=== PATIENT | female | born 1935 | race Caucasian/White ===

== ENCOUNTER → 2018-02-17 06:27 | Outpatient (CLI) | payer MEDICARE, SELFPAY ==
--- NOTE | 2018-02-17 09:04 | STRESSREP ---
Stress Test Report Pharmacologic myocardial perfusion stress test. 82-year-old lady with a history of chronic persistent atrial fibrillation. Medications metoprolol Multivite. Stress protocol: Resting EKG demonstrates atrial fibrillation with a rate of 94 bpm normal intervals and noted resting blood pressure is 128/70 mmHg. 0.4 mg of regadenoson was infused per usual protocol followed by rapid intravenous saline flush injection. Continuous EKG monitoring was performed. The maximum heart rate attained was 148 bpm which was 108% of maximum predicted heart rate the maximum workload attained was 1 metabolic equivalent. At rest there were no ST or T-wave changes noted suggest abnormal flow reserve at peak infusion no ST or T-wave changes were noted suggest abnormal flow reserve. Resting blood pressure was 128/70 final blood pressure is 112/78. Myocardial perfusion protocol. 11.1 mCi of technetium 99m sestamibi was injected at rest. 0.4 mg of regadenoson was infused per usual protocol. At peak infusion 32.9 mCi of technetium 99m sestamibi was injected stress images was obtained stress and rest images were reconstructed and compared in the short axis vertical long and horizontal long axis. Gated images were also obtained. Perfusion SPECT analysis: Review of the stress images demonstrate normal uptake of tracer noted in all areas of myocardium. The resting images similarly demonstrate normal uptake of tracer noted in all areas of myocardium. No areas of reversibility are noted suggest ischemia no previous infarct is noted. Gated SPECT analysis: The gated ejection fraction is 84%. Conclusion: Normal pharmacologic myocardial perfusion stress test. Preserved ejection fraction. Chronic persistent atrial fibrillation.
== END ==
PROVIDERS: Family Provider Family Medicine; PCP Family Medicine; Visit Provider Internal Medicine Cardiovascular Disease
DX: R94.31 Abnormal electrocardiogram [ECG] [EKG] (principal); I36.1 Nonrheumatic tricuspid (valve) insufficiency; I27.21 Secondary pulmonary arterial hypertension; I48.91 Unspecified atrial fibrillation
CPT/HCPCS: 78452; 93017; A9500; A4216; J2785

== ENCOUNTER → 2019-03-17 | Outpatient (CLI) | payer MEDICARE, SELFPAY ==
[2019-02-17 13:14] VITALS: BMI 25.9
--- NOTE | 2019-03-17 07:17 | ECHOD_ITS ---
Reason For Study: PHTN Procedure This was a 2D Doppler, Color Flow transthoracic echocardiogram. Exam performed in department. Left Ventricle Normal size and thickness. The estimated ejection fraction is 65 %. Unable to assess diastolic dysfunction due to arrhythmia. No regional wall motion abnormalities noted. Right Ventricle Normal size and thickness. Normal systolic function. Atria The left atrium is mildly enlarged. The right atrium is moderately enlarged. Normal atrial septum. Mitral Valve The mitral valve is structurally normal. No prolapse or stenosis seen. Tricuspid Valve Normal tricuspid valve. Mild (1+) tricuspid valve insufficiency. Right ventricular systolic pressure estimated to be 53 mmHg. Moderate pulmonary hypertension. Aortic Valve Normal aortic valve. Trisinus/trileaflet aortic valve. Pulmonic Valve Normal pulmonic valve. Great Vessels Normal aortic root. Normal arch. The inferior vena cava is dilated. Inferior vena cava collapse with sniff. Pericardium/Pleural No pericardial effusion. MMode/2D Measurements & Calculations LVIDd: 4.0 cm IVSd: 0.86 cm Ao root diam: 2.8 cm LVIDs: 2.5 cm LVPWd: 0.77 cm RVDd: 3.4 cm FS: 37.7 % LAV(MOD-bp): 74.8 ml LA A4 area: 22.8 cm2 LA dimension(2D): 4.0 cm LAV(MOD-bp) Indexed: 45.5 ml/m2 LAV(MOD-sp2): 73.0 ml LAV(MOD-sp4): 73.0 ml RA A4 area: 21.3 cm2 Doppler Measurements & Calculations MV E max lucien: 123.4 cm/sec Ao V2 max: 94.4 cm/sec LV V1 max: 72.9 cm/sec Ao max P.6 mmHg LV V1 max P.1 mmHg PA V2 max: 79.5 cm/sec TR max lucien: 288.4 cm/sec TR max P.3 mmHg Interpretation Summary The estimated ejection fraction is 65 %. Unable to assess diastolic dysfunction due to arrhythmia. The left atrium is mildly enlarged. The right atrium is moderately enlarged. Mild (1+) tricuspid valve insufficiency. Right ventricular systolic pressure estimated to be 53 mmHg. Moderate pulmonary hypertension. Compared to echo report dated 10/22/2017, LV function has remained the same. RV size has normalized. Pt appears to be in atrial fibrillation. Ordering Physician: Jamil Lamb Referring Physician: Urbano Mccormick Performed By: Kinjal Tan, MALIK, RVT
== END | disposition home or self-care (01) ==
PROVIDERS: Family Provider Family Medicine; PCP Family Medicine; Referring Provider Internal Medicine Cardiovascular Disease; Visit Provider Internal Medicine Cardiovascular Disease
DX: I27.20 Pulmonary hypertension, unspecified (principal); Z98.890 Other specified postprocedural states
CPT/HCPCS: 93306

== ENCOUNTER 2019-08-09 17:41 | Emergency (ER) | payer MEDICARE, SELFPAY ==
[2019-06-29 09:42] VITALS: BMI 25.2
[2019-08-09 17:42] VITALS: BP 161/92; PULSE 128; RESP 18; TEMP 36.9; O2SAT 98; BMI 25.2
--- NOTE | 2019-08-09 18:19 | CT_ITS ---
STUDY: CT BRAIN WITHOUT CONTRAST REASON FOR EXAM: Female, 83 years old. Fell and injured face. TECHNIQUE: Transaxial CT imaging of the brain was performed without administration of intravenous contrast material. Individualized dose optimization techniques were used for this CT. COMPARISON: No relevant priors. FINDINGS: No evidence of intracranial hemorrhage, mass, acute infarct, or hydrocephalus. Chronic microangiopathic changes in the white matter. Atherosclerosis of the intracranial arteries. No skull fracture. Acute impacted nasal fracture extending into the bony nasal septum. Visualized paranasal sinuses and mastoid air cells patent. Soft tissue swelling in the right frontal scalp and superficial to the nasal fracture. CT/Brain/Head without Contrast IMPRESSION: No evidence of intracranial injury or skull fracture. Acute impacted nasal fracture with adjacent soft tissue swelling. Electronically Signed: Sebastian Roe, at 19:04 EDT Tel , Service support ,
--- NOTE | 2019-08-09 18:19 | CT_ITS ---
STUDY: CT FACIAL BONES WITHOUT CONTRAST REASON FOR EXAM: Female, 83 years old. Fell and injured face. RADIATION DOSAGE (If Supplied By Facility): CTDIvol = ( 29.38 ) mGy, DLP = ( 547.46 ) mGycm TECHNIQUE: The patient was scanned in a multi detector CT scanner. Sagittal and coronal images were reconstructed. Individualized dose optimization techniques were used for this CT. COMPARISON: None. FINDINGS: Acute impacted nasal fracture extending into the nasal septum which is buckled and fractured. No other fracture. Globes have normal contour, no proptosis. Nasal soft tissue swelling and right frontal scalp soft tissue swelling. Polypoid mucosal thickening partially fills the right sphenoid sinus. Paranasal sinuses otherwise patent with no air-fluid levels. Mastoid air cells and middle ears patent. Atherosclerosis of the bilateral CCA bifurcations. Degenerative changes partially visible cervical spine. No acute dental lesions. CT/Sinus/Facial Bone IMPRESSION: Acute impacted nasal fractures extending into the nasal septum. Nasal and right frontal scalp soft tissue swelling. Electronically Signed: Sebastian Roe, at 19:08 EDT Tel , Service support ,
--- NOTE | 2019-08-09 19:43 | ED.DCSUM_ITS ---
- ER Visit Summary Date of Service: 08/09/19 Chief Complaint: [Fall with facial injury] History of Present Illness: The patient is a 83 F [Jose Ftz to the emergency department after a fall today. Patient states that she tripped over a curb and struck her face on the ground. No loss of consciousness. She denies any neck pain. Patient is on Coumadin for history of atrial fibrillation. Patient's last INR was this morning and was 3.0. She denies any visual changes. She denies any headache. Patient states that she feels okay but just wanted to get checked out. Patient believes that she is up-to-date on tetanus.] Physical Examination: [HEENT-PERRLA, EOMI. Cranial nerves II through XII grossly intact. TMs clear. Mucous membranes moist. No adenopathy. He has diffuse soft tissue swelling over the nasal bone with superficial abrasion. No septal hematoma noted. She had some dried blood in both sides of the nose. Patient has no tenderness over the mandible. Midface is stable. He has no C- spine terms of palpation and normal active range of motion is painless. Cardiovascular-regular rate and rhythm without murmur or ectopy Lungs-clear to auscultation, chest wall stable without crepitus or subcu emphysema Abdomen-normoactive bowel sounds, soft, nontender, no rebound or rigidity, no peritoneal signs. Extremities-intact ?4, normal range of motion, normal pulses, atraumatic] Test Results: [CT scan of the brain without contrast showed nothing acute intracranially. CT scan of the facial bones showed a nasal bone fracture.] Emergency Department Course and Treatment: [] Treatment Plan: [Advised to use ice to the area she will be given a prescription for [place] for pain. She will be given referral to ear nose and throat for follow-up.] Disposition: [Discharged home in stable condition.] Impression: [Mechanical fall Closed head injury Nasal fracture] This note was generated with [employer] dictation software. It may contain incorrect words, spelling, and punctuation that were not noted in review of the chart prior to signing ED Disposition - Plan for ED Patient: Referrals: Wilmar Mccormick MD [Primary Care Provider] -
--- NOTE | 2019-08-09 19:45 | DCINST.ED_ITS ---
ED Disposition - Plan for ED Patient: Instructions: FALL, Mechanical, FRACTURE, Nose (with X-Ray) Prescriptions: Hydrocodone Bitart/Apap 5-325 [[place] 5MG-325MG] 1 tab PO Q4H PRN PRN 2 Days #10 tab PRN Reason: Pain Prescription Printed Referrals: Wilmar Mccormick MD [Primary Care Provider] - 3-5 Days
== END 2019-08-09 20:03 | disposition home or self-care (01) ==
LOC: ED 18:23
PROVIDERS: Emergency Provider Emergency Medicine; Family Provider Family Medicine; PCP Family Medicine
DX: S02.2XXA Fracture of nasal bones, initial encounter for closed fracture (principal); I48.91 Unspecified atrial fibrillation; Z79.01 Long term (current) use of anticoagulants; W01.0XXA Fall on same level from slipping, tripping and stumbling without subsequent striking against object, initial encounter; Y93.01 Activity, walking, marching and hiking; Y92.89 Other specified places as the place of occurrence of the external cause; Y99.8 Other external cause status
CPT/HCPCS: 70450; 70486; 99282

== ENCOUNTER 2019-08-18 07:38 | Day surgery (SDC) | payer MEDICARE, SELFPAY ==
[2019-08-18] VITALS (7 sets, daily range): BP systolic 97–128; BP diastolic 67–100; PULSE 50–102; RESP 16–18; TEMP 36.6–36.8; O2SAT 94–97; BMI 25.2
[2019-08-18] MEDS: Lactated Ringers 1,000 ML 100 ML IV (08:50)
[2019-08-18] MEDS: Oxymetazoline 0.05% 1 SPRAY SPRAY.BTL 15 SPRAY (10:00)
[2019-08-18] MEDS: Mixture 30 ML Bottle TOPICAL (10:00)
--- NOTE | 2019-08-18 10:16 | DCINST_ITS ---
You will use the following diet at home:: No restrictions Discharge Activity: Return to Normal Activity - head of bed elevation. Avoid bl owing nose. Allergies/Adverse Reactions: Allergies No Known Allergies Allergy (Verified 08/09/19 17:42) Medications to take at Discharge warfarin 2 mg tablet 2 mg PO SUTUTHSA 05/20/18 calcium plus d 600 mg PO DAILY 10/05/18 multivitamin tablet 1 tab PO DAILY 10/05/18 metoprolol tartrate 50 mg tablet 75 mg PO BID #270 tab 11/10/18 levothyroxine 112 mcg tablet 112 mcg PO DAILY 02/17/19 Warfarin [Coumadin ([facility])] 3 mg PO MOWEFR 08/09/19 Primary Care Physician: Wilmar Mccormick MD [Primary Care Provider] - Test Results: Test results from this visit will be discussed in further detail at your follow- up appointment, if applicable. Please Follow Up With: Parker De La Torre MD - follow up 1-2 weeks, sooner as needed.
--- NOTE | 2019-08-18 10:53 | PCM.OPRPT ---
Report of Operation Date of Procedure: 08/18/19 Pre-Operative Diagnosis: Comminuted nasal fracture Post-Operative Diagnosis: Same Surgery/Procedure Performed:: Closed reduction of nasal fracture Type of Anesthesia:: Local MAC Anesthesiologist: Roman Callejas CRNA Estimated Blood Loss (mL): Negligible Description of Procedure: The patient was transported to the operating room and placed on the OR table in the semirecumbent position. Examination revealed resolving bruising and ecchymosis involving the entire face. This elderly woman had stumbled fall into the concrete last week. She struck her nasal bridge producing fracture along the distal nasal bones and the upper part of the septum. This could be seen on CT imaging. What could not be determined was the mobility of the lateral nasal bones themselves. Given the distortion and flattening of this area we discussed consideration of closed reduction of fracture and hence we commenced with this after full discussion. Was elected to do this under local anesthesia (MAC) as she is chronically on anticoagulation specifically Coumadin for dealing with atrial fibrillation. The nasal chamber was sprayed with some Afrin to bring about vasoconstriction and deep decongestion. She began to have some oozing in the nasal chamber earlier this morning a clot was evacuated from the left nasal chamber. After achieving some level of vasoconstriction Kelvin-Synephrine Xylocaine mixture was then applied using an atomizer. This brought about further vasoconstriction as well as topical anesthesia. Cottonoid pledgets were then dipped in the solution and one was placed into each nasal chamber superiorly. We were able to achieve adequate anesthesia to allow a nasal bone elevator to be inserted beneath the pledget material and with upward pressure the flattened area of the nasal bones was elevated in a more favorable position. We could literally hear the click of the nasal bone on each side as it was elevated superiorly. This brought about a better appearance of the nasal pyramid although it still seems somewhat flattened due to the multiple fracture lines. This was a comminuted fracture. The septum medialized somewhat better as well. It had been displaced somewhat to the left side superiorly. The most significant lacerations of mucosa appeared to be in this region more so on the left side. The pledgets were removed and it was elected to place some FloSeal material along the mucosa after which a small rolled pack of MeroGel was placed on each side. This is an absorbable material that will not require removal. Additional FloSeal was applied over this. Overall hemostasis appeared to be adequate throughout this manipulation and the final result was an improvement. At this point the procedure was terminated. The patient tolerated the procedure well, did not sustain any intraoperative anesthetic or surgical complication, was taken to the PACU where she was noted to be in satisfactory condition. Parker De La Torre MD
[2019-08-18 11:49] LABS: Prothrombin Time Fingerstick 30.6 SEC (11.9-14.4)
== END 2019-08-18 11:15 | disposition home or self-care (01) ==
LOC: SDC 07:39 → AC 07:41
PROVIDERS: Family Provider Family Medicine; PCP Family Medicine; Referring Provider Otolaryngology Otolaryngology/Facial Plastic Surgery; Visit Provider Otolaryngology Otolaryngology/Facial Plastic Surgery
PROC: 0NSBXZZ Reposition Nasal Bone, External Approach (ICD-10-PCS; CPT 21320; principal; 2019-08-18 09:45)
DX: S02.2XXA Fracture of nasal bones, initial encounter for closed fracture (principal); G47.30 Sleep apnea, unspecified; I48.91 Unspecified atrial fibrillation; E06.9 Thyroiditis, unspecified; Z86.11 Personal history of tuberculosis; Z79.01 Long term (current) use of anticoagulants; Z79.899 Other long term (current) drug therapy; Z85.3 Personal history of malignant neoplasm of breast; Z85.850 Personal history of malignant neoplasm of thyroid; W01.198A Fall on same level from slipping, tripping and stumbling with subsequent striking against other object, initial encounter; Y93.01 Activity, walking, marching and hiking; Y92.89 Other specified places as the place of occurrence of the external cause; Y99.8 Other external cause status
CPT/HCPCS: 21320; 36416; 85610; J7120; J2405

== ENCOUNTER → 2020-06-13 12:20 | Outpatient (CLI) | payer MEDICARE, SELFPAY ==
[2019-08-18 08:27] VITALS: BMI 25.2
[2020-06-13 13:03] LABS: International Normalized Ratio 2.6; Prothrombin Time (Protime)PT. 27.5 SECONDS (11.7-14.9)
== END ==
PROVIDERS: PCP Family Medicine; Referring Provider Family Medicine; Visit Provider Family Medicine
DX: I48.20 Chronic atrial fibrillation, unspecified (principal)
CPT/HCPCS: 85610

== ENCOUNTER 2020-12-21 08:38 | Outpatient (RCR) | payer MEDICARE, SELFPAY ==
[2020-10-17 09:35] VITALS: BMI 24.4
== END 2020-12-21 23:59 ==
LOC: IMMUN 08:38
PROVIDERS: PCP Family Medicine; Referring Provider Family Medicine; Visit Provider Family Medicine
DX: Z23 Encounter for immunization (principal)
CPT/HCPCS: 0011A; 0012A

== ENCOUNTER → 2021-01-02 07:31 | Outpatient (CLI) | payer MEDICARE, SELFPAY ==
[2020-10-17 09:35] VITALS: BMI 24.4
--- NOTE | 2021-01-02 07:40 | CT_ITS ---
STUDY: CT SOFT TISSUE NECK WITH AND WITHOUT CONTRAST REASON FOR EXAM: Female, 85 years old. MASS AT BASE OF RT EAR, HX THRYOID/BREAST CANCER, RT MASTECTOMY AND CHEMO, NON-CONTRAST IMAGES OF AREA OF INTEREST RADIATION DOSAGE (If Supplied By Facility): CTDIvol = ( 9.09 ) mGy, DLP = ( 360.93 ) mGycm TECHNIQUE: The patient was scanned in a multi-detector CT scanner. High resolution transaxial imaging was performed prior to and following intravenous administration of IV 100mL Isovue-300. Sagittal and coronal images were reconstructed. Individualized dose optimization techniques were used for this CT. COMPARISON: None. FINDINGS: Normal bilateral parotid glands. Normal bilateral employee health nurse spaces. Normal bilateral parapharyngeal spaces. Normal bilateral sublingual and submandibular glands and spaces. Normal visualized nasopharynx. Normal retropharyngeal space. Normal perivertebral space. Normal visualized bilateral faucial tonsils. The visualized tongue, tongue base and oropharynx are normal. The visualized cervical lymph nodes (levels I-) are within normal size limits, and maintain normal morphology. There is no demonstrated solid or cystic mass lesion. There is no abnormal contrast enhancement. Normal epiglottis, bilateral vallecula and hypopharynx. The pre-epiglottic and paraglottic adipose spaces are normal. Normal visualized bilateral piriform sinuses, aryepiglottic folds, vocal cords, and arytenoid-cricoid articulations. Normal subglottic trachea. Normal bilateral lobes of the thyroid gland. CT/Soft Tissue Neck W/WO Contrast IMPRESSION: No fluid collections, masses or lymphadenopathy. Electronically Signed: Fidel Dowling MD at 14:06 EST Tel , Service support ,
== END ==
PROVIDERS: PCP Family Medicine; Referring Provider Otolaryngology Otolaryngology/Facial Plastic Surgery; Visit Provider Otolaryngology Otolaryngology/Facial Plastic Surgery
DX: R22.1 Localized swelling, mass and lump, neck (principal)
CPT/HCPCS: 70492; Q9967

== ENCOUNTER → 2021-01-10 09:20 | Outpatient (CLI) | payer MEDICARE, SELFPAY ==
[2020-10-17 09:35] VITALS: BMI 24.4
--- NOTE | 2021-01-10 09:24 | CDU_ITS ---
Reason For Study: R carotid mass Rt. Velocities/BP Lt. Velocities/BP Prox CCA 70.8/17.3 cm/sec. Prox CCA 54.1/13.5 cm/sec. Mid CCA 64.3/23.9 cm/sec. Mid CCA 57.9/12.6 cm/sec. Dist CCA 57.8/16.0 cm/sec. Dist CCA 50.3/13.5 cm/sec. Prox ICA 26.7/8.8 cm/sec. Prox ICA 52.2/8.8 cm/sec. Mid ICA 33.4/12.6 cm/sec. Mid ICA 48.4/18.2 cm/sec. Dist ICA 63.6/24.8 cm/sec. Dist ICA 60.7/19.2 cm/sec. Rt. ICA/CCA = 1.0. Lt. ICA/CCA = 1.0. Prox ECA 48.5/6.0 cm/sec. Prox ECA 48.5/6.0 cm/sec. Rt. Vert. 53.2/15.4 cm/sec. Lt. Vert. 53.2/13.5 cm/sec. Right Extracranial There is homogeneous, smooth atherosclerotic plaque noted in the right common carotid artery. There is heterogeneous, irregular atherosclerotic plaque noted in the right internal carotid artery. There is heterogeneous, irregular atherosclerotic plaque noted in the right external carotid artery. Antegrade flow is noted in the right vertebral artery. Left Extracranial There is homogeneous, smooth atherosclerotic plaque noted in the left common carotid artery. There is heterogeneous, irregular atherosclerotic plaque noted in the left internal carotid artery. There is heterogeneous, irregular atherosclerotic plaque noted in the left external carotid artery. Antegrade flow is noted in the left vertebral artery. Procedure Carotid Duplex [id number]. This is a Carotid Duplex examination using B-mode, color flow and specral Doppler. The exam was diagnostic. Interpretation Summary Mild (<50%) stenosis right extracranial internal carotid. Mild (<50%) stenosis left extracranial internal carotid. Flow within the vertebral arteries is antegrade bilaterally. Ordering Physician: Abhijeet Norton Performed By: Lázaro Perez RVT
== END ==
PROVIDERS: PCP Family Medicine; Referring Provider Otolaryngology Otolaryngology/Facial Plastic Surgery; Visit Provider Otolaryngology Otolaryngology/Facial Plastic Surgery
DX: R22.1 Localized swelling, mass and lump, neck (principal); I48.91 Unspecified atrial fibrillation
CPT/HCPCS: 93880

== ENCOUNTER 2022-04-04 10:14 | Emergency (ER) | payer MEDICARE, SELFPAY ==
[2022-04-04 10:15] VITALS: BP 156/119; PULSE 118; RESP 16; TEMP 36.4; O2SAT 97; BMI 22.8
[2022-04-04 10:41] VITALS: PULSE 122
--- NOTE | 2022-04-04 10:44 | EKG12_ITS ---
Test Reason : Blood Pressure : / mmHG Vent. Rate : 093 BPM Atrial Rate : 117 BPM P-R Int : 000 ms QRS Dur : 080 ms QT Int : 364 ms P-R-T Axes : 000 077 039 degrees QTc Int : 452 ms Atrial fibrillation Abnormal ECG Confirmed by BRIGIDA AGUIRRE, EB ([id number]), film and video editor IGOR MAYORGA ([id number]) on 04/07/2022 10:01:39 A M Referred By: CHRISTIANO Confirmed By:AMMY ALLRED MD
--- NOTE | 2022-04-04 10:50 | EX.ED.DYSGE1 ---
HPI History of Present Illness Chief Complaint: Palpitations Informant: patient Onset/Context/Timing Onset: - (No symptoms) Narrative Narrative: Patient had a routine checkup this morning and has been asymptomatic. She states that she and her were going to go out to breakfast after the appointment so she waited to take her metoprolol tartrate 75 mg that she takes twice daily until breakfast because she takes it with food. While at the office, she was told that her chronic A. fib was racing and she should come to the emergency department. She denies any symptoms this morning, she states she never feels her A. fib and she denies any lightheadedness, dyspnea, chest discomfort, leg swelling today. She denies any recent illness. She is compliant with her medications other than above. 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 Non-rheumatic tricuspid valve insufficiency Obstructive sleep apnea Persistent atrial fibrillation Secondary pulmonary arterial hypertension Home Medications warfarin 2 mg tablet 2 mg PO SUTUTHSA 05/20/18 [History Last Taken Unknown] multivitamin 1 tab PO DAILY 10/05/18 [History Last Taken Unknown] levothyroxine 112 mcg tablet 112 mcg PO DAILY 02/17/19 [History Last Taken Unknown] warfarin 3 mg PO MOWEFR 08/09/19 [History Last Taken 08/17/19 18:00] metoprolol tartrate 50 mg tablet See Rx Instructions .ROUTE .COMPLEX #270 tab 01/21/21 [Rx Last Taken Unknown] cholecalciferol (vitamin D3) 25 mcg (1,000 unit) capsule 25 mcg PO DAILY 01/30/22 [History Last Taken Unknown] levothyroxine 125 mcg capsule 125 mcg PO DAILY 01/30/22 [History Last Taken Unknown] Allergy/AdvReac Type Severity Reaction Status Date / Time No Known Allergies Allergy Verified 04/04/22 10:14 Family History Father Negative for CAD Mother Negative for CAD Surgical History H/O rhinoplasty History of partial thyroidectomy (~05/2008) History of right mastectomy (~1982) Social History Smoking Status: Never smoker alcohol intake: current details: occasional wine substance use type: does not use ROS ROS ED Constitutional Constitutional ED: Denies chills or fever(s) Eyes Eyes: Denies change in vision or diplopia ENT ENT ED: Denies rhinorrhea or sore throat Cardiovascular Cardiovascular: Denies chest pain or palpitations Respiratory/Chest Respiratory/Chest: Denies cough or dyspnea Gastrointestinal Gastrointestinal: Denies abdominal pain, diarrhea, nausea or vomiting Genitourinary Genitourinary ED: Denies dysuria or hematuria Musculoskeletal Musculoskeletal: Denies back pain or neck pain Integumentary Denies abscess or rash Neurologic Neurologic: Denies headache(s), paresthesias or weakness Psychiatric Psychiatric: Denies anxiety or suicidal thoughts EXAM Physical Exam Const Vital Signs: 04/04/22 10:15 04/04/22 10:41 04/04/22 11:45 Temperature 97.6 F L Temperature Source Temporal Pulse Rate 118 H 122 H 88 Respiratory Rate 16 16 Blood Pressure 156/119 H 140/100 H Blood Pressure Mean 131 113 Pulse Ox 97 98 Oxygen Delivery Method Room Air Room Air Positive well nourished and well developed General Appearance ED: well developed and NAD HEENT Reports moist mucous membranes normocephalic and atraumatic Eyes PERRL and EOMs intact bilaterally Neck full ROM and supple Resp normal respiratory effort and clear to auscultation bilaterally Effort and Inspection: able to speak in complete sentences Cardio no murmurs Rate: tachycardic Rhythm: abnormal rhythm irregularly irregular GI non-tender and non-distended Auscultation: normoactive bowel sounds Palpation: soft Back/Spine no CVA tenderness General Back: other FROM Extremity normal to inspection General Extremety ED: Negative for edema, pulses abnormal or tenderness General Extremity: Negative for edema or pulses abnormal Neuro oriented x3, CN's II-XII intact bilaterally and no sensory deficits noted Sensorium / Orientation: awake and alert Motor Exam: strength 5/5 throughout Skin no rashes or lesions noted and no wounds MDM MDM MDM Narrative Medical decision making narrative: I allow the patient to take her morning 75 mg along with something to eat and drink, and I gave her metoprolol 5 mg IV. Her EKG shows A. fib without any acute injury pattern or aflutter at a rate of about 93. She feels fine and wants to leave, I think that is okay. She has been hovering around 90 as far as her heart rate, and in the 80s much of the time. We talked about rechecking her heart rate later, and taking additional metoprolol if she absolutely needs to, and/or calling her PCP for more advice or return to the ER if she has any concerns. She is comfortable with that plan and will follow-up. Lab Data Attestation: I reviewed the patient's lab results. Labs: Laboratory Results - last 24 hr 04/04/22 04/04/22 10:35 10:35 WBC 5.9 RBC 4.94 Hgb 15.5 H Hct 46.4 MCV 93.9 MCH 31.4 MCHC 33.4 RDW Std Deviation 45.1 H RDW Coeff of Kirit 13.1 Plt Count 153 MPV 9.0 Immature Gran % (Auto) 0.700 Neut % (Auto) 75.5 H Lymph % (Auto) 15.6 L [place] % (Auto) 7.5 Eos % (Auto) 0.2 Baso % (Auto) 0.5 Absolute Neuts (auto) 4.5 Absolute Lymphs (auto) 0.92 Nucleated RBC % 0 Sodium 142 Potassium 3.8 Chloride 106 Carbon Dioxide 29.0 Anion Gap 7 BUN 12 Creatinine 0.79 Estim Creat Clear Calc 32.79 Est GFR (MDRD) Af Amer 89 Est GFR (MDRD) Non-Af 73 BUN/Creatinine Ratio 15.2 Glucose 104 Calcium 8.6 Rhythm Strip Rhythm Strip: A-fib Rate: 123 Ectopy: None EKG Initial EKG: Attestation: I personally reviewed and interpreted this EKG as follows: Interpretation: No Acute Injury Pattern, Atrial Fibrillation and Non-Specific ST Changes Discharge Plan Triage Chief Complaint: Palpitations ED Provider: Lucas Avalos Dx/Rx/DC Orders Clinical Impression: Persistent atrial fibrillation with RVR Instructions: ED AFIB Prescriptions: No Action warfarin [Coumadin] 2 mg tablet 2 mg PO SUTUTHSA RF: 0 multivitamin tablet 1 tab PO DAILY RF: 0 levothyroxine 112 mcg tablet 112 mcg PO DAILY RF: 0 levothyroxine 125 mcg capsule 125 mcg PO DAILY RF: 0 cholecalciferol (vitamin D3) 25 mcg (1,000 unit) capsule 25 mcg PO DAILY RF: 0 warfarin 3 MG tablet 3 mg PO MOWEFR RF: 0 metoprolol tartrate 50 mg tablet See Rx Instructions .ROUTE .COMPLEX Qty: 270 RF: 3 Primary Care Provider: Wilmar Mccormick Referrals: Wilmar Mccormick MD [Primary Care Provider] - 3-5 Days (For reeval) Disposition Disposition: Home, Self Care
[2022-04-04 10:52] LABS: Absolute Lymphocyte Count 0.92 X10^3/uL (0.83-4.51); Absolute Neutrophil Count 4.5 X10^3/uL (2.0-7.7); Basophil# 0.03 X10^3/uL; Basophil% 0.5 % (0-1); Eosinophil# 0.01 X10^3/uL; Eosinophils% 0.2 % (0-5); Hematocrit 46.4 % (37-47); Hemoglobin 15.5 g/dL (12.0-15.0); Lymphocyte # 0.92 X10^3/ul (0.83-4.51); Lymphocyte % 15.6 % (19-41); Mean Corp Hgb Conc 33.4 g/dL (32-36); Mean Corpuscular Hgb 31.4 pg (27.0-32.0); Mean Corpuscular Volume 93.9 fL (81-99); Monocyte# 0.44 X10^3/uL; Monocyte% 7.5 % (0-10); NRBC Flagged by Analyzer 0 % (0-5); Neutrophil # 4.46 X10^3/uL (2.7-7.7); Neutrophil % 75.5 % (47-70); Platelet Count 153 K/mm3 (150-450); RBC Distribution Width CV 13.1 % (11.6-14.6); RBC Distribution Width SD 45.1 fl (35.1-43.9); Red Blood Count 4.94 M/mm3 (4.2-5.4); White Blood Count 5.9 K/mm3 (4.4-11.0)
[2022-04-04] MEDS: Metoprolol Tartrate 5 MG/5 ML Vial IV (11:00)
[2022-04-04 11:06] LABS: Anion Gap 7 (5-15); BUN 12 mg/dL (7-18); BUN/Creat Ratio 15.2 RATIO (10-20); Calcium,Total 8.6 mg/dL (8.5-10.1); Chloride 106 mmol/L (98-107); Creatinine, Serum 0.79 mg/dL (0.55-1.02); EST Glomerular Filtration Rate 73 mL/min (>60); Est Glom Filt Rate - Afr Amer 89 mL/min (>60); Estimated Creatinine Clearance 32.79 ml/min; Glucose 104 mg/dL (74-106); Potassium 3.8 mmol/L (3.5-5.1); Sodium Level 142 mmol/L (136-145)
[2022-04-04 11:45] VITALS: BP 140/100; PULSE 88; RESP 16; O2SAT 98
--- NOTE | 2022-04-05 11:11 | EKG12_ITS ---
Test Reason : Blood Pressure : / mmHG Vent. Rate : 106 BPM Atrial Rate : 127 BPM P-R Int : 000 ms QRS Dur : 080 ms QT Int : 318 ms P-R-T Axes : 000 080 032 degrees QTc Int : 422 ms Atrial fibrillation with premature ventricular or aberrantly conducted complexes ST & T wave abnormality, consider lateral ischemia Abnormal ECG When compared with ECG of 09-MAY-2008 08:40, Atrial fibrillation has replaced Sinus rhythm Vent. rate has increased BY 36 BPM Confirmed by HILARIO HOOD MD ([id number]), scientific editor IGOR MAYORGA ([id number]) on 04/08/2022 10:44:57 AM Referred By: BB Confirmed By:HILARIO HOOD MD
== END 2022-04-04 12:19 | disposition home or self-care (01) ==
PROVIDERS: Emergency Provider Emergency Medicine; PCP Family Medicine; Visit Provider Emergency Medicine
DX: I48.19 Other persistent atrial fibrillation (principal); I27.20 Pulmonary hypertension, unspecified; E03.2 Hypothyroidism due to medicaments and other exogenous substances; G47.33 Obstructive sleep apnea (adult) (pediatric); Z85.3 Personal history of malignant neoplasm of breast; Z85.850 Personal history of malignant neoplasm of thyroid; I36.1 Nonrheumatic tricuspid (valve) insufficiency; Z79.01 Long term (current) use of anticoagulants; Z79.890 Hormone replacement therapy; Z79.899 Other long term (current) drug therapy
CPT/HCPCS: 80048; 85025; 93005; 96374; 99284; A4216